=== PATIENT | male | born 1960 | race Caucasian/White ===

== ENCOUNTER 2016-06-11 22:36 | Observation (INO) ==
--- NOTE | 2016-06-11 22:40 | Emergency Department Note ---
Arrhythmia/Palpitations HPI - General Chief Complaint: Arrhythmia/Palpitations Stated Complaint: palpitations Time Seen by Provider: 06/11/16 22:39 Mode of arrival: ambulatory - History of Present Illness HPI Narrative: 56-year-old male with history of COPD, no cardiac history coming in with palpitations and racing heart beats for the past 12 hours. Endorses slight lightheadedness. Has had this palpitations in the past 2 months, and has sp02 occasionally demonstrate rates in the 140 range. Slight chest pain this morning which resolved after 30 minutes. No diaphoresis, no worsening shortness of breath. Is currently on a Medrol dose pack as outpatient for COPD exacerbation, with cough present over the past week and a half. - Related Data Home Medications Medication Instructions Recorded Confirmed albuterol sulfate HFA 90 2 puff INHALATION Q4-6H PRN g 12/06/14 09/20/15 mcg/actuation aerosol inhaler ibuprofen 200 mg tablet See Dose Instructions PO .COMPLEX 12/06/14 09/20/15 PRN tab Atrovent 06/11/16 Oxygen 06/11/16 Previous Rx's Medication Instructions Recorded ipratropium-albuterol 0.5 mg-3 3 ml INHALATION QID #3 vial 01/17/16 mg(2.5 mg base)/3 mL nebulization soln beclomethasone dipropionate 80 160 mcg INHALATION BID #8.7 g 03/18/16 mcg/actuation aerosol inhaler Allergies Allergy/AdvReac Type Severity Reaction Status Date / Time budesonide [From Pulmicort] Allergy Unknown Unknown Verified 06/11/16 22:43 etodolac [From Lodine] Allergy Unknown Unknown Verified 06/11/16 22:43 fluticasone Allergy Unknown Unknown Verified 06/11/16 22:43 hydrocodone Allergy Unknown Unknown Verified 06/11/16 22:43 Review of Systems All systems ED: reviewed and negative except as stated. Past Medical History - Past Medical History Source: nursing notes reviewed Medical history: Reports: asthma, COPD Physical Exam - General Limitations: no limitations General appearance: alert, anxious - Head Head exam: atraumatic, normocephalic - Eye Eye exam: Present: normal appearance, PERRL, EOMI - ENT ENT exam: normal exam, normal oropharynx, mucous membranes moist - Neck Neck exam: Present: normal inspection, full ROM - Chest Chest inspection: Present: normal inspection, symmetric chest wall rise - Respiratory Respiratory exam: Present: normal lung sounds bilaterally. Absent: respiratory distress, wheezes, stridor, accessory muscle use, prolonged expiratory phase - Cardiovascular Cardiovascular exam: Present: tachycardia, irregular rhythm - Abdominal Exam Abdominal exam: Present: soft, normal bowel sounds. Absent: distention, tenderness, guarding, rebound - Extremities Exam Extremities exam: Absent: pedal edema - Back Exam Back exam: Present: normal inspection, full ROM - Neurological Exam Neurological exam: Present: alert, oriented X3 - Skin Skin exam: Present: warm, dry, intact Course Vital Signs Temperature 97.7 F 06/11/16 22:38 Pulse Rate 145 H 06/11/16 22:38 Respiratory Rate 18 06/11/16 22:38 Blood Pressure 128/96 06/11/16 22:38 Pulse Oximetry (%) 94 06/11/16 22:38 Temperature 97.7 F 06/11/16 22:38 Pulse Rate 90 06/12/16 00:30 Respiratory Rate 16 06/11/16 23:54 Blood Pressure 127/78 06/12/16 00:30 Pulse Oximetry (%) 94 06/12/16 00:30 Arrhythmia/Palpitations - MDM Narrative Medical decision making narrative: Patient demonstrated atrial fibrillation with rates in 140 range, with frequent PVCs, given initial dose of 150mg Amiodarone, with rate down into 110s, then bolus of 10mg Diltiazem followed by 5mg/hour Diltiazem drip. Cardiac etiology of RVR evaluated with troponin which was negative at <0.01, and BNP which is normal. BMP normal as well. Patient admitted for observation for atrial fibrillation with RVR. Discussed case with Dr. Crum, who accepted admission. Patient transferred in fair condition. - Lab Data Result diagrams: 06/11/16 22:56 06/11/16 22:56 Lab Results 06/11/16 06/11/16 06/11/16 Range/Units 22:56 22:56 22:56 WBC 10.0 (4.5-11.0) K/mcL RBC 5.06 (4.50-5.90) M/mcL Hgb 14.7 (13.5-16.5) g/dL Hct 45.1 (41.0-55.0) % MCV 89.3 (80.0-100.0) fL MCH 29.1 (26.0-34.0) pg MCHC 32.6 (31.0-36.0) g/dL RDW 14.0 (11.5-14.5) % Plt Count 285 (140-440) K/mcL MPV 8.5 (7.4-10.4) fL Gran % 64.7 (38.0-78.0) % Lymph % (Auto) 20.8 (15.5-49.0) % [place] % (Auto) 3.5 (1.0-9.0) % Eos % (Auto) 10.6 H (0.0-7.0) % Baso % (Auto) 0.4 (0.0-2.0) % Gran # 6.5 (1.8-8.0) K/mcL Lymph # 2.1 (1.5-4.8) K/mcL [place] # 0.3 (0.1-0.9) K/mcL Eos # 1.1 H (0.0-0.7) K/mcL Baso # 0 (0.0-0.3) K/mcL Sodium 139 (133-145) mmol/L Potassium 4.1 (3.3-5.1) mmol/L Chloride 100 (96-108) mmol/L Carbon Dioxide 22 (22-30) mmol/L Anion Gap 17.0 H (8-16) BUN 13 (6-20) mg/dl Creatinine 0.9 (0.7-1.2) mg/dl GFR Calculation 94 Glucose 119 H (70-105) mg/dL Calcium 9.1 (8.6-10.4) mg/dl Total Bilirubin < 0.2 (0.0-1.0) mg/dL AST 16 (0-37) U/l ALT 13 (0-40) U/l Alkaline Phosphatase 110 (39-117) U/L Total Creatine Kinase 108 (24-195) IU/L CK-MB (CK-2) 2.1 (0-4.9) ng/ml Troponin T < 0.01 (0-0.03) ng/ml NT-Pro-B Natriuret Pep (0-125) pg/ml Total Protein 7.1 (5.9-8.4) gm/dL Albumin 4.2 (3.2-5.2) gm/dL Globulin 2.9 (2.2-3.7) gm/dL Albumin/Globulin Ratio 1.4 (1.0-2.3) Urine Color Urine Appearance Urine pH (5.0-9.0) Ur Specific [place] (1.000-1.035) Urine Protein (NEG) mg/dL Urine Glucose (UA) (NEG) mg/dL Urine Ketones (NEG) mg/dL Urine Occult Blood (<0.03) mg/dL Urine Nitrate (NEG) Urine Bilirubin (NEG) mg/dL Urine Urobilinogen (NEG) mg/dL Ur Leukocyte Esterase (NEG) /uL Urine RBC (0-1) /hpf Urine WBC (0-4) /hpf Ur Squamous Epith Cells (0-4) /hpf Urine Bacteria (0) /hpf Ur Culture Indicated? 06/11/16 06/11/16 Range/Units 22:56 23:54 WBC (4.5-11.0) K/mcL RBC (4.50-5.90) M/mcL Hgb (13.5-16.5) g/dL Hct (41.0-55.0) % MCV (80.0-100.0) fL MCH (26.0-34.0) pg MCHC (31.0-36.0) g/dL RDW (11.5-14.5) % Plt Count (140-440) K/mcL MPV (7.4-10.4) fL Gran % (38.0-78.0) % Lymph % (Auto) (15.5-49.0) % [place]y % (Auto) (1.0-9.0) % Eos % (Auto) (0.0-7.0) % Baso % (Auto) (0.0-2.0) % Gran # (1.8-8.0) K/mcL Lymph # (1.5-4.8) K/mcL [place] # (0.1-0.9) K/mcL Eos # (0.0-0.7) K/mcL Baso # (0.0-0.3) K/mcL Sodium (133-145) mmol/L Potassium (3.3-5.1) mmol/L Chloride (96-108) mmol/L Carbon Dioxide (22-30) mmol/L Anion Gap (8-16) BUN (6-20) mg/dl Creatinine (0.7-1.2) mg/dl GFR Calculation Glucose (70-105) mg/dL Calcium (8.6-10.4) mg/dl Total Bilirubin (0.0-1.0) mg/dL AST (0-37) U/l ALT (0-40) U/l Alkaline Phosphatase (39-117) U/L Total Creatine Kinase (24-195) IU/L CK-MB (CK-2) (0-4.9) ng/ml Troponin T (0-0.03) ng/ml NT-Pro-B Natriuret Pep < 50.0 (0-125) pg/ml Total Protein (5.9-8.4) gm/dL Albumin (3.2-5.2) gm/dL Globulin (2.2-3.7) gm/dL Albumin/Globulin Ratio (1.0-2.3) Urine Color Colorless Urine Appearance Clear Urine pH 7.0 (5.0-9.0) Ur Specific [place] 1.003 (1.000-1.035) Urine Protein Neg (NEG) mg/dL Urine Glucose (UA) Negative (NEG) mg/dL Urine Ketones 5/tr A (NEG) mg/dL Urine Occult Blood Neg (<0.03) mg/dL Urine Nitrate Neg (NEG) Urine Bilirubin Neg (NEG) mg/dL Urine Urobilinogen Neg (NEG) mg/dL Ur Leukocyte Esterase Neg (NEG) /uL Urine RBC < 1 (0-1) /hpf Urine WBC < 1 (0-4) /hpf Ur Squamous Epith Cells 0 (0-4) /hpf Urine Bacteria 0 (0) /hpf Ur Culture Indicated? No - Radiology Data Radiology results reviewed: Yes I reviewed the patient's radiology results. CXR demonstrating - EKG Data EKG attestation: Yes I reviewed and interpreted this EKG. Rate: tachycardia Rhythm: A.Fib (atrial fibrillation with RVR) Ectopy: PVC Disposition Clinical Impression: Atrial fibrillation with RVR Disposition: Xfer As Outpt/Obs ([facility]) Condition: Fair Referrals: Patrick Corona PA-C [Primary Care Provider] -
[2016-06-11] MEDS ORDERED: ASPIRIN 81 MG TAB.CHEW CHEWED ONE (22:47)
[2016-06-11] MEDS ORDERED: ADENOSINE 3 MG/ML VIAL IV ONE (22:54)
[2016-06-11] MEDS ORDERED: AMIODARONE 150 MG/3 ML VIAL IV ONE (22:57)
[2016-06-11] MEDS ORDERED: 0.9 % SODIUM CHLORIDE 1,000 ML IV ONE (23:17)
[2016-06-11 23:48] LABS: Basophils # (Auto) 0 K/mcL (0.0-0.3); Basophils % (Auto) 0.4 % (0.0-2.0); Eosinophils # (Auto) 1.1 K/mcL (0.0-0.7); Eosinophils % (Auto) 10.6 % (0.0-7.0); Granulocytes % (Auto) 64.7 % (38.0-78.0); Lymphocytes # (Auto) 2.1 K/mcL (1.5-4.8); Lymphocytes % (Auto) 20.8 % (15.5-49.0); Mean Cell Volume 89.3 fL (80.0-100.0); Mean Corpuscular HGB Conc 32.6 g/dL (31.0-36.0); Mean Corpuscular Hemoglobin 29.1 pg (26.0-34.0); Monocytes # (Auto) 0.3 K/mcL (0.1-0.9); Monocytes % (Auto) 3.5 % (1.0-9.0); Platelet Count 285 K/mcL (140-440); RBC 5.06 M/mcL (4.50-5.90)
[2016-06-12] MEDS ORDERED: DILTIAZEM 25 MG/5 ML VIAL IV ONE (00:18)
[2016-06-12 00:19] LABS: Creatine Kinase MB 2.1 ng/ml (0-4.9)
[2016-06-12 00:21] LABS: ALT/SGPT 13 U/l (0-40); Albumin 4.2 gm/dL (3.2-5.2); Albumin/Globulin Ratio 1.4 (1.0-2.3); Alkaline Phosphatase 110 U/L (39-117); Blood Urea Nitrogen 13 mg/dl (6-20); Creatine Kinase 108 IU/L (24-195)
[2016-06-12] MEDS ORDERED: DILTIAZEM 125 MG/25 ML VIAL IV ONE (00:25)
[2016-06-12] MEDS ORDERED: DILTIAZEM 125 MG in 0.9 % SODIUM CHLORIDE 100 ML IV SCH (00:30)
[2016-06-12 00:45] LABS: Appearance,Urine CLEAR; Bacteria,Urine 0 /hpf (0); Bilirubin,Urine NEG (NEG); Color,Urine COLORLESS; Glucose,Urine (UA) NEGATIVE (NEG); Leukocyte Esterase,Urine NEG /uL (NEG); Nitrate,Urine NEG (NEG); Protein,Urine NEG (NEG); Specific Gravity,Urine 1.003 (1.000-1.035); Urine Blood NEG mg/dL (<0.03); Urine RBC < 1 /hpf (0-1); Urine Squamous Epithelial Cell 0 /hpf (0-4); Urine WBC < 1 /hpf (0-4); Urobilinogen,Urine NEG (NEG)
--- NOTE | 2016-06-12 01:17 | Internal Med History&Physical ---
Medical - H&P: HPI Patient information: Note initiated : 06/12/16 at 1:13 am Service Date, if different from initiated Date: [] Patient: Rico Maguire 56 y/o M admitted on for palpitations. Chief Complaint: [] History of present illness: Mr. Maguire is a 56 year old male with a history of long-standing COPD due to tobacco abuse. He does use home nebulizers and oxygen on a daily basis. several weeks ago he says he was unable to get his Qvar prescription, and was told by the pharmacy that that was no longer on his insurance company's formulary. He has had bad reactions to budesonide and fluticasoneinhalers in the past, which are on his formulary. He therefore cut the dose of his Qvar in half and then in half again, trying to stretch it out. He then began to notice increasing shortness of breath and productive cough. He had some prednisone at home, so he started himself back on 60 mg of prednisone a day. However he notes that also over the last few weeks he has had intermittent palpitations and has noted that his oximeter seems to read and erratic pulse. Palpitations lasted approximately 30 minutes yesterday, so he presented to the emergency room for evaluation. He said he had had some chest discomfort, but then says he hasfairly chronic discomfort in his chest, which he rates as 1 out of 10, for many years. This has not really changed. In the emergency room he was diagnosed with atrial fibrillation with rapid ventricular response, and was treated for same. -He and his do know that he has had increased cough and wheezing and shortness of breath and cough productive of yellow phlegm over the last couple of weeks. He does note occasional chills but is unsure about fever. He did feel dizzy briefly last night but not this morning. He has not had a sore throat. He does note that his sputum will have occasional streaks of blood in it. -He and his also note that he was previously diagnosed with some type of lung nodule, and was advised to have a follow-up CAT scan of his chest in 6 months, which they say never got ordered. otherwise, he has not had significant chest pain, abdominal pain, nausea or vomiting, diarrhea or constipation or dysuria.he does not report swelling glandsor recent weight loss. -he does have issues with chronic pain in his neck as well as his low back, and says he has had previous spine problems with disc problems and osteophytes, and also mild osteoporosis. when this flares up, he will take ibuprofen 600 mg 3 or 4 times a day. He generally does not take Tylenol as he does not find it helpful. He has had bad reactions in the past a hydrocodone and other pain medications. [facility] Medical History Acute exacerbation of chronic obstructive airways disease (Acute) SCC (squamous cell carcinoma) (Chronic) Right elbow Sinusitis, maxillary, chronic (Chronic) (01/11/2014 Dr Rm) Sinusitis chronic, ethmoidal (Chronic) (01/11/2014 Dr mR) Hyperlipidemia (Chronic) Dislocation, shoulder closed (Chronic) COPD (chronic obstructive pulmonary disease) (Chronic) Chronic neck pain (Chronic) Asthma (Chronic) Arthralgia (Chronic) Left shoulder Tobacco abuse (Resolved)-he started smoking around the age of 11, and I believe quit around age 24, and then resumed around age 34 and then quit around age 54. He probably has a 40-50 pack year smoking history. He drinks 2 glasses of red wine most days. He does not use drugs. He lives with his . Surgical History H/O arthroscopy of left knee (Resolved) 2001 meniscal H/O arthroscopy of right knee (Resolved) 2007 meniscal tear H/O inguinal hernia repair (Resolved) 1990 bilateral S/P skin biopsy (Resolved 09/14/13) Right Elbow: Invasive squamous cell carcinoma, keratoacanthomatous type Family History Father Alcohol abuse Unknown Allergic rhinitis Asthma Cardiovascular disease Glaucoma Migraine Osteoarthritis Sister Malignant neoplasm of breast Mother , at age 83 Congestive heart failure Diabetes mellitus Malignant neoplasm of colon Social History smoking status: Former smoker--He probably has a 40-50 pack year smoking history. He drinks 2 glasses of red wine most days. He does not use drugs. He lives with his . Medication List albuterol sulfate HFA 90 mcg/actuation 2 puffs Inhalation Q4-6H PRN beclomethasone dipropionate 80 mcg/actuation 160 mcg Inhalation BID patient has been unable to obtain a prescription for this recently. formoterol fumarate 12 mcg Inhalation Q12H he no longer takes this, as it is now nonformulary. ibuprofen 2-3 capsules PO PRN, currently 600 mg by mouth 3 times a day to 4 times a day. ipratropium bromide 17 mcg/actuation 2 inhalations (2 x 17 mcg/actuation) Inhalation QID ipratropium-albuterol 0.5 mg-3 mg(2.5 mg base)/3 mL 3 mL Inhalation 3 times a day to QID home oxygen -2 L at at bedtime. prednisone, currently 60 mg daily, with plans for a taper. tENS unit daily when necessaryCalcium supplement daily Vitamin D supplement and magnesium daily. Allergies/Adverse Reactions budesonide [From Pulmicort] Allergy (Unknown, Verified 09/20/15 11:40) Unknown etodolac [From Lodine] Allergy (Unknown, Verified 09/20/15 11:40) Unknown fluticasone Allergy (Unknown, Verified 09/20/15 11:40) Unknown hydrocodone Allergy (Unknown, Verified 09/20/15 11:40) Unknown prednisone Adverse Reaction (Unknown, Verified 09/20/15 11:40) Unknown Medical - H&P: Meds Home Medications Medication Instructions Recorded Confirmed Type albuterol sulfate HFA 90 2 puff INHALATION Q4-6H PRN g 12/06/14 06/12/16 History mcg/actuation aerosol inhaler ibuprofen 200 mg tablet See Dose Instructions PO .COMPLEX 12/06/14 06/12/16 History PRN tab ipratropium-albuterol 0.5 mg-3 3 ml INHALATION QID #3 vial 01/17/16 06/12/16 Rx mg(2.5 mg base)/3 mL nebulization soln beclomethasone dipropionate 80 160 mcg INHALATION BID #8.7 g 03/18/16 06/12/16 Rx mcg/actuation aerosol inhaler Ipratropium [place] [Atrovent Hfa] 1 puff INH PRN PRN 06/11/16 06/12/16 History Oxygen 06/11/16 History Prednisone 60 mg PO DAILY 06/12/16 06/12/16 History Allergies Allergy/AdvReac Type Severity Reaction Status Date / Time budesonide [From Pulmicort] Allergy Intermediate Swelling Verified 06/12/16 08: 35 hydrocodone AdvReac Intermediate Hives Verified 06/12/16 08:35 etodolac [From Lodine] AdvReac Mild Gastrointestinal Verified 06/12/16 08:35 Upset fluticasone AdvReac Mild Altered Verified 06/12/16 08:35 Sense of Taste Medical - H&P: Exam - Constitutional Vitals: Temp Pulse Resp BP Pulse Ox 97.7 F 90 16 127/78 94 06/11/16 22:38 06/12/16 00:30 06/11/16 23:54 06/12/16 00:30 06/12/16 00:30 Exam: On exam, he is a well-developed well-nourished man in no acute distress. head is normocephalic, atraumatic. Eyes: PERRLA, EOMI, anicteric. TMs are clear. Pharynx: Appears clear. Teeth are in good repair. Neck: Is obvious JVD, lymphadenopathy, thyromegaly, bruits. Cardiac exam: Shows an irregularly irregular rhythm, with no obvious murmurs, rubs, gallops. Lungs:Showed fairly diffuse inspiratory and expiratory wheezing with scattered rhonchi, throughout both lung oconnor. There is minimal accessory muscle use. Abdomen: Is soft and nontender, without obvious masses. Bowel sounds are normoactive. Extremities: Show no cyanosis, clubbing, edema. Neurologic:Is grossly nonfocal. Medical - H&P: Reslt - Labs CBC & Chem 7: 06/12/16 04:55 06/12/16 04:55 Labs: Short CBC 06/11/16 Range/Units 22:56 WBC 10.0 (4.5-11.0) K/mcL Hgb 14.7 (13.5-16.5) g/dL Hct 45.1 (41.0-55.0) % Plt Count 285 (140-440) K/mcL BMP 06/11/16 22:56 Sodium 139 Potassium 4.1 Chloride 100 Carbon Dioxide 22 BUN 13 Creatinine 0.9 Glucose 119 H Calcium 9.1 Cardiac Enzymes 06/11/16 06/11/16 Range/Units 22:56 22:56 Total Creatine Kinase 108 (24-195) IU/L CK-MB (CK-2) 2.1 (0-4.9) ng/ml Troponin T < 0.01 (0-0.03) ng/ml Liver Function 06/11/16 Range/Units 22:56 Total Bilirubin < 0.2 (0.0-1.0) mg/dL AST 16 (0-37) U/l ALT 13 (0-40) U/l Alkaline Phosphatase 110 (39-117) U/L Albumin 4.2 (3.2-5.2) gm/dL Urine 06/11/16 Range/Units 23:54 Urine Color Colorless Urine Appearance Clear Urine pH 7.0 (5.0-9.0) Ur Specific [place] 1.003 (1.000-1.035) Urine Protein Neg (NEG) mg/dL Urine Glucose (UA) Negative (NEG) mg/dL EKG - a fib at 160 CXR - evidence of COPD; no obvious infiltrates. d-dimer is normal at 0.33 Magnesium was normal at 2.1 LFTs were within normal limits. Medical - H&P: A/P (1) Chest pain in adult Current visit: Yes Status: Acute (2) Atrial fibrillation with RVR Current visit: Yes Status: Acute (3) Acute exacerbation of chronic obstructive airways disease Current visit: No Status: Acute (4) Chronic neck pain Current visit: No Status: Chronic - Narrative A/P Narrative: #1.cardiac. -The patient presents with atrial fibrillation with rapid ventricular response, of uncertain cause. his heart rate has improved with IV diltiazem and amiodarone. Initial troponin is negative for acute ischemia. BNP is not suggestive of heart failure.-his heart may be irritable due to recent COPD exacerbation, and possible mild fluid retention related to steroid use. -check d-dimer. -Admit to telemetry for further observation. Check follow-up cardiac enzymes. -Check echocardiogram. #2. Pulmonary. Recent COPD exacerbation. Continue nebulizers, oxygen, steroids. #3. CODE STATUS. full code. #4. DVT prophylaxis:Subcutaneous Lovenox. #5. Past smoking history.patient is now abstinent. #6. History of chronic neck pain. the patient intermittently uses fairly high-dose ibuprofen, which increases his risk of side effects. We discussed that he should never take the ibuprofen at the same time that he is taking the prednisone. I also discussed with him that he may want to take ulcer prophylaxis when he is using the high-dose ibuprofen. -I also ordered when necessary tramadol and when necessary Lidoderm patches for his back pain. He can also have Ativan when necessary to help him sleep if the pain is keeping him awake. #7. History of sinusitis both ethmoidal and maxillary. approximately 60 minutes was spent some far today, reviewing the patient's test results,interviewing and examining him, and reviewing plan of care with he and his , and writing orders.. addendum: I met with the patient again later this morning, after atrial fibrillation had converted back to sinus rhythm. the current plan is to watch him on telemetry for a few more hours. Ibuprofen is on hold. Echocardiogram results are pending. I discussed with him he will need follow-up with his primary care physician JUDIE, to review if he is having ongoing symptoms of atrial fibrillation. We did discuss that he may be at increased risk for stroke if he is having intermittent atrial fibrillation. -He also has a history of a previous abnormality on his chest CT scan, which still needs follow-up.-Our social work team is going to work on seeing if they canget him his usual lung medications that he does tolerate, and that seemed to work for him.
[2016-06-12] MEDS ORDERED: ONDANSETRON 4 MG/2 ML VIAL IV PRN (03:02)
[2016-06-12] MEDS ORDERED: FAMOTIDINE 20 MG TABLET PO PRN (03:02)
[2016-06-12] MEDS ORDERED: ALBUTEROL SULFATE 2.5 MG/3 ML NEBULIZER NEB PRN (03:02)
[2016-06-12] MEDS ORDERED: ACETAMINOPHEN 325 MG TABLET PO PRN (03:02)
[2016-06-12] MEDS ORDERED: DOCUSATE SODIUM 100 MG CAPSULE PO PRN (03:02)
[2016-06-12] MEDS ORDERED: MAGNESIUM SULFATE 8.12 MEQ in DEXTROSE 5% IN WATER 50 ML IV ONE (03:56)
[2016-06-12] MEDS ORDERED: LORazepam 1 MG TABLET PO PRN (03:57)
[2016-06-12] MEDS ORDERED: traMADol 50 MG TABLET PO PRN (03:58)
[2016-06-12] MEDS ORDERED: MAGNESIUM SULFATE 8.12 MEQ/2 ML VIAL ONE (04:52)
[2016-06-12] MEDS ORDERED: FAMOTIDINE 20 MG TABLET PO ONE (04:53)
[2016-06-12] MEDS: FAMOTIDINE 20 MG TABLET PO SCH ×2 (05:06→08:57)
--- NOTE | 2016-06-12 05:42 | XRay Report ---
CLINICAL INFORMATION: Dysrhythmia COMPARISON: 02/08/2015 FINDINGS: The heart is borderline enlarged - new from the previous study. Mediastinum and pulmonary vessels are unremarkable. There is minor atelectasis left base - the remainder of the lungs are clear. No effusions. IMPRESSION: Borderline cardiomegaly. No CHF. Minor left basilar atelectasis Interpreted and Authenticated by: Matt Strong 06/12/16
[2016-06-12 05:52] LABS: Basophils # (Auto) 0 K/mcL (0.0-0.3); Basophils % (Auto) 0.3 % (0.0-2.0); Eosinophils # (Auto) 0 K/mcL (0.0-0.7); Eosinophils % (Auto) 0.4 % (0.0-7.0); Granulocytes % (Auto) 76.1 % (38.0-78.0); Lymphocytes # (Auto) 1.1 K/mcL (1.5-4.8); Lymphocytes % (Auto) 19.4 % (15.5-49.0); Mean Cell Volume 89.4 fL (80.0-100.0); Mean Corpuscular HGB Conc 32.4 g/dL (31.0-36.0); Monocytes # (Auto) 0.2 K/mcL (0.1-0.9); Monocytes % (Auto) 3.8 % (1.0-9.0); Platelet Count 277 K/mcL (140-440); RBC 4.96 M/mcL (4.50-5.90); Red Cell Distribution Width 14.1 % (11.5-14.5)
[2016-06-12 06:00] LABS: Magnesium 2.1 mg/dL (1.6-2.5)
[2016-06-12 06:16] LABS: ALT/SGPT 12 U/l (0-40); Albumin 4.1 gm/dL (3.2-5.2); Alkaline Phosphatase 100 U/L (39-117); Blood Urea Nitrogen 10 mg/dl (6-20)
[2016-06-12] MEDS: IPRATROPIUM/ALBUTEROL 3 ML AMPUL.NEB NEB SCH ×2 (06:55→13:25)
[2016-06-12] MEDS ORDERED: methylPREDNISolone SOD SUCC 125 MG/2 ML VIAL IV SCH (09:00)
[2016-06-12] MEDS ORDERED: ENOXAPARIN 40 MG/0.4 ML SYRINGE SQ SCH (09:00)
[2016-06-12] MEDS ORDERED: LIDOCAINE PATCH TOPICAL SCH ×2 (10:00→22:00)
[2016-06-12] MEDS ORDERED: DILTIAZEM 125 MG in 0.9 % SODIUM CHLORIDE 100 ML IV PRN (12:30)
--- NOTE | 2016-06-12 15:13 | Discharge Summary ---
Medical - DS: Prov Patient information: Note initiated : 06/12/16 at 3:03 pm Service Date, if different from initiated Date: [] Patient: Rico Maguire 56 y/o M admitted on 06/12/16 for palpitations. Chief Complaint: [] Date of admission: 06/12/16 03:01 Discharge date: 06/12/16 Primary care physician: [] SINDY Granados, phone #[phone] Admitting clinician: Doris Fowler Attending physician on discharge: Doris Fowler Medical - DS: Meds - Discharge Medications Prescriptions: Amoxicillin/Potassium Clav [Augmentin] 875 mg PO Q12H #14 tablet Beclomethasone Dipropionate [Qvar] 1 puff IH QIDP #1 aer.w.adap Calcium Carbonate/Vitamin D3 [Calcium 500 + Vit D Caplet] 1 each PO DAILY #1 tablet Cholecalciferol (Vitamin D3) [Vitamin D] 2,000 unit PO DAILY #1 capsule predniSONE [Prednisone] 10 mg PO UD #15 tablet Active and Home Medications: Home Medications albuterol sulfate HFA 90 mcg/actuation aerosol inhaler 2 puff INHALATION Q4-6H PRN g 12/06/14 [History Confirmed 06/12/16 Last Taken 06/11/16] ibuprofen 200 mg tablet See Dose Instructions PO .COMPLEX PRN tab 12/06/14 [ History Confirmed 06/12/16 Last Taken 06/11/16] ipratropium-albuterol 0.5 mg-3 mg(2.5 mg base)/3 mL nebulization soln 3 ml INHALATION QID #3 vial 01/17/16 [Rx Confirmed 06/12/16 Last Taken 06/11/16 20:00 ] beclomethasone dipropionate 80 mcg/actuation aerosol inhaler 160 mcg INHALATION BID #8.7 g 03/18/16 [Rx Confirmed 06/12/16 Last Taken Unknown] Ipratropium Telephone [Atrovent Hfa] 1 puff INH PRN PRN 06/11/16 [History Confirmed 06/12/16 Last Taken 06/11/16] Oxygen 06/11/16 [History Last Taken 06/12/16] Prednisone 60 mg PO DAILY 06/12/16 [History Confirmed 06/12/16 Last Taken 19:00] Medical - DS: Hosp Hospital course: Mr. Maguire is a 56 year old male who presented last night with a month of intermittent palpitations. He was diagnosed to be in atrial fibrillation with rapid ventricular response. -He was treated in the emergency room, and then on telemetry, with IV amiodarone and followed by IV diltiazem. He converted back to normal sinus rhythm within about 12 hours. He is now been off the diltiazem for about 8 hours with no recurrence. it appears that he may have had some cardiac irritability due to recent COPD exacerbation, as well as taking both ibuprofen and prednisone to try to help control his COPD symptoms and chronic pains symptoms. -echocardiogram was performed, but results are still pending. The patient is anxious to return home, now that he is feeling a bit better. -for his apparent COPD exacerbation, he was started on IV Solu-Medrol. He will be changed over to oral prednisone at 60 mg a day, with a rapid taper. I also discussed with social media sr strategy manager fact that he could not get his Qvar inhaler, which seem to be controlling his symptoms previously. She was going to talk with him to see if they could get an exception for that. He has had adverse reactions in the past to both budesonide and fluticasone. also because he and his report that he has had increasing productive cough for the past several weeks, I will add Augmentin to help treat any ongoing bronchitis which may be exacerbating things. -i did offer the patient trials of both tramadol and a Lidoderm patch for his chronic back pain, but he seems reluctant to do either of those. for full details on past medical history, medications, allergies, social history , and physical exam, please refer to the dictated H&P from earlier today. assessment and plan: #1. Cardiac. -New onset atrial fibrillation, which is probably been intermittent over the last month. -as of now, the patient has converted back to sinus rhythm. We will continue with steroids, but discontinue ibuprofen at this time, to avoid side effects. -I think he may want to go ahead and take a full-strength aspirin for now, but he will need to follow-up with his primary care physician as soon as possible, and consider following up with cardiology to clarify what his cardiac rhythm issues are. I did discuss with he and his that if he continues to go in and out of A. fib, that he will need to consider anticoagulation therapy for stroke prophylaxis. -Echocardiogram will also need to be reviewed at his primary care office. -I suspect his poor lung function is having an impact on his cardiac function. -he certainly is also at risk for cardiac ischemia, given his previous smoking history. -he was noted to have at least one run of V. tach last night although about 5 beats, while he was in atrial fib. He was given 1 g of magnesium sulfate IV, and we have not seen thisso far today. #2. Pulmonary. Significant COPD, which is oxygen dependent at home.. Unfortunately the patient tells me that he was doing pretty well previously on inhaled formoterol and Qvar, but does apparently have been taken off his formulary. I did ask social work to look into whether or not we could get exceptions for those. -In the meantime, he will continue with his prednisone taper. Because it sounds like he may have developed bronchitis over the last few weeks, Augmentin was also added for a 10 day course today.-Continue with DuoNeb's 3 times a day to 4 times a day at home, as well as when necessary albuterol. -Also, it sounds like he was previously diagnosed with lung nodules,for which she was to have a follow-up CT scan at 6 months, and apparently missed that follow-up. He is certainly at risk for lung cancer, and to talk to his primary care physician as soon as possible about getting that scheduled. #3. Chronic pain. -the patient has been taking ibuprofen 3-4 times a day for the last week or 2 and then added the prednisone to that. I discussed with him that this markedly increases his risk for side effects, including GI bleeding. He should stop the ibuprofen while he is on the prednisone. -we also discussed that when he is on ibuprofen he should consider taking GI prophylaxis, such as [id number] Pepcid or Zantac or Prilosec. -he should not take the aspirin with the ibuprofen or the prednisone. approximately 90 minutes was spent over the course of the day today,from time of admission until now, revisiting the patient, and reviewing plan of care with the patient and his as well as with nursing staff, and then writing orders. Discharge diagnosis: atrial fibrillation with rapid ventricular response, resolved. COPD exacer Secondary discharge diagnosis: chronic pain, with possible overuse and mixing of ibuprofen and prednisone. history of lung nodules, probably with inadequate follow-up. - Time Spent with Patient Total time spent providing and/or coordinating discharge services: Medical - DS: Exam - Constitutional Vitals: Vital Signs Temp Pulse Pulse Resp BP Pulse Ox 06/12/16 14:23 114 H 06/12/16 13:27 97 06/12/16 13:26 82 20 06/12/16 13:00 99.3 F 87 20 136/85 96 06/12/16 12:13 85 06/12/16 11:15 78 06/12/16 09:10 122 H 06/12/16 07:25 92 H 18 96 06/12/16 07:13 98.2 F 92 H 18 121/67 96 06/12/16 06:59 98 06/12/16 06:57 80 10 L 06/12/16 06:56 98 06/12/16 05:51 116/96 98 06/12/16 05:00 16 132/83 98 06/12/16 04:45 125/77 06/12/16 04:30 119/76 06/12/16 04:00 130/89 06/12/16 03:02 98.6 F 60 14 131/78 97 Intake and Output 06/12/16 06/12/16 06/12/16 05:59 13:59 21:59 Intake Total 119 / 119 240 / 240 Output Total 525 / 525 Balance 119 / 119 -285 / -285 Intake: IV Cardizem 125 mg In Sodium Chloride 0.9% 100 ml @ 5 MG/HR 5 mls/hr IV Q12H [facility] Rx#:[id number] Oral 100 / 100 240 / 240 Output: Void Amount 525 / 525 Other: Meal Breakfast Percent of Meal Consumed 100% Feeding Ability Independent # Voids 1 # Bowel Movements 1 Weight 188 lb Medical - DS: Data Labs on day of discharge: Labs from last 24 hours 06/12/16 06/12/16 06/12/16 22:56 04:55 04:55 WBC 5.5 RBC 4.96 Hgb 14.4 Hct 44.3 MCV 89.4 MCH 29.0 MCHC 32.4 RDW 14.1 Plt Count 277 MPV 8.2 Gran % 76.1 Lymph % (Auto) 19.4 [place] % (Auto) 3.8 Eos % (Auto) 0.4 Baso % (Auto) 0.3 Gran # 4.2 Lymph # 1.1 L [place] # 0.2 Eos # 0 Baso # 0 D-Dimer Sodium 139 Potassium 4.7 Chloride 105 Carbon Dioxide 20 L Anion Gap 14.0 BUN 10 Creatinine 0.8 GFR Calculation 99 Glucose 128 H Calcium 8.8 Magnesium 2.2 Total Bilirubin 0.2 AST 14 ALT 12 Alkaline Phosphatase 100 Total Protein 6.2 Albumin 4.1 Globulin 2.1 L Albumin/Globulin Ratio 2.0 06/12/16 06/12/16 04:55 04:55 WBC RBC Hgb Hct MCV MCH MCHC RDW Plt Count MPV Gran % Lymph % (Auto) [place] % (Auto) Eos % (Auto) Baso % (Auto) Gran # Lymph # [place] # Eos # Baso # D-Dimer 0.33 Sodium Potassium Chloride Carbon Dioxide Anion Gap BUN Creatinine GFR Calculation Glucose Calcium Magnesium 2.1 Total Bilirubin AST ALT Alkaline Phosphatase Total Protein Albumin Globulin Albumin/Globulin Ratio echocardiogram report is pending. EEKG done at 10:35 PM on June 11, 2016: Shows atrial fibrillation with a rate of [address]-T changes. EKG done June 12, 2016 at 4:46 AM: Shows normal sinus rhythm at a rate of 92 chest x-ray from June 11 shows borderline cardiomegaly and minor left base atelectasis. Medical - DS: A/P - Patient/Caregiver Discharge Instructions Activity: increase activity as tolerated, wear oxygen at night Diet: Low Sodium (2gm) Additional Instructions: #1. Please see her primary care physician as soon as possible, so that you can review the echocardiogram results, and decide if you then need to see cardiology to look further into year episode of atrial fibrillation. If he continued to have palpitations, this will definitely need follow-up, as he may need to consider long-term anticoagulation therapy, to decrease risk of stroke. -please start taking aspirin, 325 mg, every day, until this issue is sorted out. However, do not take the aspirin, when you are taking ibuprofen , as this increases your risk of bleeding ulcer. #2.our social media sr strategy manager was to look into trying to get pharmacy to help you get an exemption for your Qvar inhaler. Please follow up with them. #3. I also gave you a prescription for an antibiotic, to helpclear any bronchitis that he may have going on currently. #4. For your chronic pain, he could consider taking tramadol pills by mouth, and addition to your TENS unit, and a topical lidocaine patch. Please do not take ibuprofen while you are taking the prednisone, as they are both anti- inflammatories. if you do go back on the ibuprofen for any length of time, please also take an ulcer medicine to prevent ulcers, such as Pepcid or Zantac or Prilosec. #5. Please be sure to have your primary care physician schedule a follow-up CT scan, to follow up in your previous diagnosis of lung nodules. Prescriptions: Amoxicillin/Potassium Clav [Augmentin] 875 mg PO Q12H #14 tablet Beclomethasone Dipropionate [Qvar] 1 puff IH QIDP #1 aer.w.adap Calcium Carbonate/Vitamin D3 [Calcium 500 + Vit D Caplet] 1 each PO DAILY #1 tablet Cholecalciferol (Vitamin D3) [Vitamin D] 2,000 unit PO DAILY #1 capsule predniSONE [Prednisone] 10 mg PO UD #15 tablet - Problem Maintenance (1) Chest pain in adult Status: Chronic (2) Atrial fibrillation with RVR Status: Acute (3) Acute exacerbation of chronic obstructive airways disease Status: Acute (4) Chronic neck pain Status: Chronic - Follow up Plan Follow up with: Patrick Corona PA-C [Primary Care Provider] - 06/23/16 10:30 am Disposition: Home, Self-Care Prognosis: Good Rehab Potential: Good I certify that the patient requires SNF services: No Overall status at discharge: patient is progressing back to baseline Medical - DS: Qual - VTE Deep Vein Thrombosis/Pulmonary Embolism Present on Admission: No
--- NOTE | 2016-06-13 07:32 | Echocardiogram Report ---
ECHOCARDIOGRAM: 2-D and M-mode echocardiography with cardiac Doppler and color flow imaging were performed with a [employer] Aplio MX. Indication is new onset atrial fibrillation. Overall size of the four cardiac chambers and aortic root appeared normal as did LV wall thickness. Systolic performance appeared hyperdynamic. Estimated ejection fraction is 75%. The aortic valve appeared trileaflet and normal. There was no evidence for aortic stenosis or aortic regurgitation by Doppler interrogation. The mitral and tricuspid valves appeared unremarkable. Doppler interrogation of LV inflow disclosed normal early diastolic deceleration time and equal ''e'' and ''a'' wave amplitude. There was no evidence for mitral regurgitation. Pulmonary venous interrogation disclosed normal ''s'' wave dominance. The pulmonic valve was not visualized. Pulmonary artery acceleration time appeared normal. There was no evidence for pulmonic stenosis or pulmonic regurgitation. There was no evidence for tricuspid regurgitation. No intracardiac shunting was appreciated. There was no evidence for pericardial effusion. The IVC was of normal diameter and showed normal respiratory variation. Sinus rhythm, rate 98, was present. CONCLUSION:Hyperdynamic LV systolic performance. No other abnormalities noted. (See accompanying M-mode and Doppler reports for quantitation.) ECHOCARDIOGRAPHY M-MODE CALCULATIONS: HT: 68'' WT: 180 BSA: 1.95 m2 NORMALS AORTA: AORTIC ROOT 2.9 2.0-3.7 cm LEFT ATRIUM 2.9 1.9-4.0 cm MITRAL VALVE: EXCURSION 2.3 1.9-2.7 cm EPSS 0.1 <0.5 cm LT VENTRICLE: LVID (ED) 4.2 3.5-5.7 cm LVID (ES) 3.0 SEPTAL THICKNESS 1.1 0.6-1.1 cm SEPTAL EXCURSION 0.7 0.3-0.8 cm LVPW THICKNESS 1.1 0.6-1.1 cm LVPW EXCURSION 1.0 0.9-1.4 cm MINOR AXIS FS 2.9 25%-40% RT VENTRICLE: RVID (ED) -- 0.9-2.6 cm(up to 3cm if LLD) QUALITATIVE DOPPLER FLOW STUDIES MITRAL VALVE -- AORTIC VALVE -- TRICUSPID VALVE -- PULMONIC VALVE -- QUANTITATIVE DOPPLER FLOW STUDIES SAMPLE SITES VELOCITIES PEAK PRESSURE VALVE AREA and/or VALVE WINDOW (PEAK,M/SEC) DROP (GRADIENT) PRESSURE HALF-TIME MV (Diastole) 0.7 -- -- MV (Systole) -- -- -- AO (Diastole) -- -- -- AO (Systole) 1. -- -- TV (Systole) -- -- -- PV (Systole) 0.8 -- -- PV (Diastole) -- LWG:jamie Job ID: [id number] Doc ID: [id number] Danilo Todd MD
== END 2016-06-12 17:20 | disposition home or self-care (01) ==
LOC: ED 22:36 → ICU 06-12 03:00 → INTOOBSV 06-12 03:01
PROVIDERS: ADMIT Internal Medicine; ATTEND Internal Medicine